=== PATIENT | female | born 1990 | race Two or more races ===

== ENCOUNTER 2022-12-30 01:09 | Emergency (ER) | payer OTHER ==
[~2022-12-30] VITALS: Ht 154.9 cm; Wt 56.2 kg
[2022-12-30] MEDS ORDERED: CEPHALEXIN500 MG PO (05:44)
[2022-12-30] MEDS ORDERED: KETO10TA2 PO (05:44)
== END 2022-12-30 05:55 ==
LOC: ER 01:09
DX: S61.250A Open bite of right index finger without damage to nail, initial encounter (principal); S61.252A Open bite of right middle finger without damage to nail, initial encounter; Y04.1XXA Assault by human bite, initial encounter; Y93.89 Activity, other specified; Y92.89 Other specified places as the place of occurrence of the external cause
CPT/HCPCS: 73130; 90471; 90714; 96372; 99284; J0696